=== PATIENT | male | born 1980 | race Caucasian/White ===

== ENCOUNTER 2018-09-27 14:49 | Emergency (ER) | payer OTHER ==
--- NOTE | 2018-09-27 15:58 | EDM.PDOC ---
Scribed by Pam Veloz 09/27/18 [id number] for Whitney Zuleta MD ED HPI GENERAL MEDICAL PROBLEM - General Chief Complaint: Lower Extremity Injury/Pain Stated Complaint: RT LEG/HIP PAIN Time Seen by Provider: 09/27/18 15:31 Source of Information: Reports: Patient, RN, RN Notes Reviewed History Limitations: Reports: No Limitations - History of Present Illness INITIAL COMMENTS - FREE TEXT/NARRATIVE: Patient presents to ER with complaint that he banged his right leg, knee and yesterday in a humvee roll over drill. He rates the pain 6/10. She he took Advil last night. No ice packs applied at home. He has an abrasion to the perez and bruising to the knee. The right hip is a "little sore" but minimal, and walking does not affect it. Onset Date: 09/26/18 Duration: Getting Worse Location: Reports: Lower Extremity, Right Quality: Reports: Ache Severity: Moderate Improves with: Reports: None Worsens with: Reports: None Associated Symptoms: Reports: No Other Symptoms Right Leg Pain Score (Numeric/FACES): 6 - Related Data Allergies Allergy/AdvReac Type Severity Reaction Status Date / Time meperidine [From Demerol] Allergy Rash Verified 09/27/18 15:08 Home Meds: Home Meds Ibuprofen/Diphenhydramine Cit [Advil Pm Caplet] 1 tab PO ASDIRECTED PRN [History] Lisinopril 20 mg PO DAILY 09/27/18 [History] Past Medical History HEENT History: Reports: Impaired Vision Other HEENT History: wears glasses Cardiovascular History: Reports: Hypertension Respiratory History: Reports: None Gastrointestinal History: Reports: None Genitourinary History: Reports: None Neurological History: Reports: None Psychiatric History: Reports: None Endocrine/Metabolic History: Reports: None Hematologic History: Reports: None Immunologic History: Reports: None Oncologic (Cancer) History: Reports: None Dermatologic History: Reports: Other (See Below) Other Dermatologic History: rash with cold - Infectious Disease History Infectious Disease History: Reports: Chicken Pox - Past Surgical History Head Surgeries/Procedures: Reports: None Musculoskeletal Surgical History: Reports: Shoulder Surgery Other Musculoskeletal Surgeries/Procedures:: neck surgery Social & Family History - Tobacco Use Smoking Status *Q: Never Smoker Second Hand Smoke Exposure: No - Caffeine Use Caffeine Use: Reports: Coffee, Soda - Recreational Drug Use Recreational Drug Use: No - Living Situation & Occupation Occupation: Employed Review of Systems - Review of Systems Review Of Systems: ROS reveals no pertinent complaints other than HPI. ED EXAM, GENERAL - Physical Exam Exam: See Below Exam Limited By: No Limitations General Appearance: Alert, WD/WN, No Apparent Distress Head: Atraumatic, Normocephalic Neck: Normal Inspection, Full Range of Motion Respiratory/Chest: No Respiratory Distress Cardiovascular: Normal Peripheral Pulses Back Exam: Normal Inspection, Full Range of Motion. No: Vertebral Tenderness Extremities: Normal Range of Motion, No Pedal Edema, Normal Capillary Refill, Leg Pain (Superficial abrasion to Rt mid-perez, no erythema or drainage. Rt knee with full ROM, no visible swelling, redness, bruising, or deformity. Rt knee tenderness to palpation over the superior portion of the patella.). No: Joint Swelling, Luke's Sign, Limited Range of Motion, Increased Warmth, Redness Neurological: Alert, Oriented, Normal Gait, No Motor/Sensory Deficits Psychiatric: Normal Mood Skin Exam: Warm, Dry, Normal Color, No Rash Course - Vital Signs Last Recorded V/S: Last Vital Signs Temp 36.8 C 09/27/18 15:04 Pulse 80 09/27/18 15:04 Resp 16 09/27/18 15:04 BP 138/85 09/27/18 15:04 Pulse Ox 96 09/27/18 15:04 - Orders/Labs/Meds Orders: Active Orders 24 hr Category Date Time Status Knee 3V Rt [CR] Urgent Exams 09/27/18 15:39 Ordered - Radiology Interpretation Free Text/Narrative:: [facility] Final Radiology Report Call: [phone] assistance Online chat: [email or web address] Name: ALMA LAZAR Age: 37Years M Date: 09/27/2018 SSN: -- : [id number] Study: XR KNEE 3 VIEWS RIGHT Requesting Physician: WHITNEY ZULETA Images: 3 Addl Studies: Provided Clinical History: Contrast: Contrast Medium: Contrast Amount: Contrast Method: CONFIDENTIALITY STATEMENT This report is intended only for use by the referring physician, and only in accordance with law. If you received this in error, call [phone]. Page 1 of 1 EXAM: XR Right Knee, 3 Views EXAM DATE/TIME: 09/27/2018 3:44 PM CLINICAL HISTORY: 37 years old, male; Signs and symptoms; Other: Injury TECHNIQUE: Imaging protocol: XR Right knee. Views: 3 views. COMPARISON: No relevant prior studies available. FINDINGS: Bones/joints: Normal. Soft tissues: Normal. IMPRESSION: No acute findings. Thank you for allowing us to participate in the care of your patient. Dictated and Authenticated by: Tung Waller MD 09/27/2018 3:54 PM Central Time ([place] & [place]) Departure - Departure Time of Disposition: 16:00 Disposition: Home, Self-Care 01 Condition: Good Clinical Impression: Suprapatellar bursitis of right knee, Work related injury Abrasion of anterior right lower leg Qualifiers: Encounter type: initial encounter Qualified Code(s): S80.811A - Abrasion, right lower leg, initial encounter - Discharge Information *PRESCRIPTION DRUG MONITORING PROGRAM REVIEWED*: No *COPY OF PRESCRIPTION DRUG MONITORING REPORT IN PATIENT KAYLA: No Instructions: Bursitis, [id number], Abrasion, [id number], RICE for Routine Care of Injuries Forms: ED Department Discharge Additional Instructions: Rest, ice packs, and elevate right knee as needed to reduce pain and swelling. Light activity as tolerated. No prolonged standing or walking. No running, jumping, crawling, or repetitive use of right leg/knee. Use over the counter Ibuprofen (Advil/Motrin) as needed for pain. Follow directions on label for dosing and precautions. Follow up in clinic with your doctor in 1 week for recheck. - My Orders Last 24 Hours: My Active Orders 09/27/18 15:39 Knee 3V Rt [CR] Urgent - Assessment/Plan Last 24 Hours: My Active Orders 09/27/18 15:39 Knee 3V Rt [CR] Urgent I have read and agree with the documentation that has been completed regarding this visit. By signing this record, I attest that the documentation was completed in my physical presence and is an accurate record of the encounter.
== END 2018-09-27 16:16 | disposition home or self-care (01) ==
LOC: DL.ED 14:49
DX: S80.811A Abrasion, right lower leg, initial encounter (principal); M70.51 Other bursitis of knee, right knee; I10 Essential (primary) hypertension; Z88.5 Allergy status to narcotic agent; X58.XXXA Exposure to other specified factors, initial encounter; Y99.0 Civilian activity done for income or pay
CPT/HCPCS: 73562-RT; 99283-25